=== PATIENT | female | born 1995 | race Caucasian/White ===

== ENCOUNTER 2019-10-02 12:45 | Inpatient (IN) | payer SELFPAY ==
[~2019-10-02] VITALS: Ht 167.6 cm; Wt 70.8 kg
[~2019-10-02 12:45] MED LIST: AMOX1TAB11 PO
[2019-10-02 13:19] LABS: AMNIO PT POSITIVE
[2019-10-02] MEDS ORDERED: IBUPROFEN 400 MG TABLET. PO PRN (13:45)
[2019-10-02] MEDS ORDERED: ONDANSETRON PF 4 MG/2 ML VIAL. IVP PRN ×2 (13:45→17:30)
[2019-10-02] MEDS ORDERED: BUTORPHANOL 2 MG/ML VIAL. IVP PRN (13:45)
[2019-10-02] MEDS ORDERED: 0.9 % SODIUM CHLORIDE 10 ML DISP.SYRIN. IV PRN (13:45)
[2019-10-02] MEDS ORDERED: LIDOCAINE 1% PF 30 ML VIAL. INJ PRN (13:45)
[2019-10-02] MEDS ORDERED: AMPICILLIN SODIUM 2 GM in IV NORMAL SALINE 100ML 100 ML IV ONE (13:45)
[2019-10-02] MEDS ORDERED: MAG HYDROX/ALUMINUM HYD/SIMETH 30 ML ORAL.SUSP PO PRN (13:45)
[2019-10-02] MEDS ORDERED: TERBUTALINE 1 MG/ML VIAL. SQ PRN (13:45)
[2019-10-02] MEDS ORDERED: OXYTOCIN 30 UNIT/500 ML PREMIX 500 ML IV PRN ×2 (13:45)
[2019-10-02] MEDS: IV RINGERS,LACTATED 1000ML 1,000 ML IV SCH ×4 (14:00→22:25)
[2019-10-02 14:03] VITALS: BP 124/60
[2019-10-02 14:04] LABS: BASO # 0.1 x10^3/uL (0.0-0.2); BASO % 1 % (0-3); EOS # 0.1 x10^3/uL (0.0-0.7); EOS % 1 % (0-3); HEMATOCRIT 33.9 % (36.0-47.0); HEMOGLOBIN 11.7 g/dL (12.0-15.5); LYMPH # 2.4 x10^3/uL (1.0-4.8); LYMPH % 24 % (24-48); MEAN CORPUSCULAR HEMOGLOBIN 29 pg (25-35); MEAN CORPUSCULAR HGB CONC 35 g/dL (31-37); MEAN CORPUSCULAR VOLUME 82 fL (79-100); MONO # 0.7 x10^3/uL (0.0-1.1); MONO % 7 % (0-9); NEUT # 6.6 x10^3/uL (1.8-7.7); NEUT % 67 % (31-73); PLATELET COUNT 327 x10^3/uL (140-400); RED BLOOD COUNT 4.12 x10^6/uL (3.50-5.40); RED CELL DISTRIBUTION WIDTH 14.1 % (11.5-14.5); WHITE BLOOD COUNT 9.8 x10^3/uL (4.0-11.0)
--- NOTE | 2019-10-02 14:17 | RAD ---
OB ULTRASOUND, > 14 WEEKS Clinical Indication: No care, ruptured membranes. Comparison: None. Technique: Multiple grayscale images, color Doppler, and M-mode images of the uterus are obtained. Findings: There is a single intrauterine in vertex presentation. The placenta is anterior and fundal in location without evidence of placenta previa. The amount of amniotic fluid appears appropriate. Amniotic fluid index is 9.8 cm. The cervix is not visualized. Biometrical data: BPD = 9.4 cm for 38 weeks 3 days. HC = 33.4 cm for 38 weeks 1 days. AC = 33.1 cm for 37 weeks 0 days. FL = 7.2 cm for 36 weeks 6 days. HC/AC ratio = 1.01. Overall, the estimated sonographic gestational age is 37 weeks and 4 days for an estimated date of delivery of October 19, 2019. The estimated date of delivery provided by the last menstrual period is October 18, 2019. Estimated weight is 3164 +/- 468 grams. The estimated heart rate is 122 beats per minute. A anatomic survey is not possible due to advanced gestational age. IMPRESSION: Single live intrauterine with estimated sonographic gestational age of 37 weeks and 4 days. Electronically signed by: Jose Angel Mccormack MD (10/02/2019 2:14 PM) [id number]
[2019-10-02] MEDS ORDERED: OXYTOCIN 30 UNIT/500 ML PREMIX 500 ML IV ONE (16:30)
[2019-10-02] MEDS ORDERED: IV RINGERS,LACTATED 1000ML 1,000 ML IV SCH (17:26)
[2019-10-02] MEDS ORDERED: IV RINGERS,LACTATED 500ML 500 ML IV PRN (17:30)
[2019-10-02] MEDS ORDERED: ePHEDrine PF IN SALINE 50 MG/10 ML SYRINGE. IV PRN (17:30)
[2019-10-02] MEDS ORDERED: L&D EPIDURAL SYRINGE 50 ML EPID PRN (17:30)
[2019-10-02] MEDS ORDERED: BUPIVACAINE MPF 0.25% 30 ML VIAL. EPID PRN (17:30)
[2019-10-02] MEDS ORDERED: PROCHLORPERAZINE 10 MG/2 ML VIAL. IV PRN (17:30)
[2019-10-02] MEDS ORDERED: diphenhydrAMINE 50 MG/ML VIAL IV PRN ×2 (17:30)
[2019-10-02] MEDS ORDERED: fentaNYL PF VIAL 100 MCG/2 ML VIAL EPID PRN (17:30)
[2019-10-02] MEDS ORDERED: ATROPINE 0.5 MG/5 ML DISP.SYRINGE. IV PRN (17:30)
[2019-10-02] MEDS ORDERED: PHENYLEPHRINE in 0.9% NACL PF 1 MG/10 ML SYRINGE. IV PRN (17:30)
[2019-10-02] MEDS ORDERED: NALOXONE 0.4 MG/ML VIAL. IV PRN (17:30)
[2019-10-02] MEDS ORDERED: ROPIVacaine 0.2% PF 10 ML VIAL. EPID PRN (17:30)
[2019-10-02] MEDS: AMPICILLIN SODIUM 1 GM in IV NORMAL SALINE 50ML 50 ML IV SCH ×2 (18:12→21:15)
[2019-10-02] MEDS: BUTORPHANOL 2 MG/ML VIAL. IVP PRN ×2 (19:06→22:08)
[2019-10-02 21:57] LABS: BILIRUBIN,URINE NEGATIVE (NEG); CLARITY,URINE CLEAR; COLOR,URINE YELLOW; NITRITE,URINE NEGATIVE (NEG); PH,URINE 7.5 (<5.0-8.0); PROTEIN,URINE NEGATIVE (NEG-TRACE); UROBILINOGEN,URINE 0.2 mg/dL (0.2 mg/dL)
[2019-10-02 22:02] LABS: BARBITURATES NEG (NEG); BENZODIAZEPINES NEG (NEG); CANNABINOIDS NEG (NEG); COCAINE NEG (NEG); METHADONE NEG (NEG); OPIATES NEG (NEG); PHENCYCLIDINE NEG (NEG)
[2019-10-02 22:03] LABS: AMPHETAMINE/METHAMPHETAMINE NEG (NEG)
[2019-10-02 22:11] LABS: BACTERIA,URINE FEW /HPF (0-FEW); SQUAMOUS EPITHELIAL CELL,UR FEW /LPF
[2019-10-03] MEDS ORDERED: MMR per PROTOCOL. MC PRN (01:30)
[2019-10-03] MEDS ORDERED: MAGNESIUM HYDROXIDE 2,400 MG/30 ML ORAL.SUSP. PO PRN (01:30)
[2019-10-03] MEDS ORDERED: PHENYLEPH/MINERAL OIL/PETROLAT RECTAL OINTMENT TUBE. RC PRN (01:30)
[2019-10-03] MEDS ORDERED: HYDROCORTISONE 1% TOPICAL OINTMENT 30GM TUBE. TP PRN (01:30)
[2019-10-03] MEDS ORDERED: ACETAMINOPHEN 325 MG TABLET. PO PRN (01:30)
[2019-10-03] MEDS ORDERED: SIMETHICONE 80 MG TAB.CHEW PO PRN (01:30)
[2019-10-03] MEDS ORDERED: diphenhydrAMINE HCL 25 MG CAPSULE PO PRN (01:30)
[2019-10-03] MEDS ORDERED: MAG HYDROX/ALUMINUM HYD/SIMETH 30 ML ORAL.SUSP PO PRN (01:30)
[2019-10-03] MEDS ORDERED: OXYTOCIN 30 UNIT/500 ML PREMIX 500 ML IV PRN (01:30)
[2019-10-03] MEDS ORDERED: oxyCODONE/APAP 5/325 1 TAB TABLET PO PRN (01:30)
[2019-10-03] MEDS ORDERED: TDaP (Adacel) per PROTOCOL. MC PRN (01:30)
[2019-10-03] MEDS ORDERED: 0.9 % SODIUM CHLORIDE 10 ML DISP.SYRIN. IV PRN (01:30)
[2019-10-03] MEDS ORDERED: BENZOCAINE 20% TOPICAL AEROSOL SPRAY 57GM CAN. TP PRN (01:30)
[2019-10-03] MEDS ORDERED: ZOLPIDEM 5 MG TABLET. PO PRN (01:30)
[2019-10-03] MEDS ORDERED: DOCUSATE SODIUM 100 MG CAPSULE. PO PRN (01:30)
--- NOTE | 2019-10-03 01:44 | LDN ---
DATE OF DELIVERY: This patient is a 24-year-old female who is a 1, para 0, 37 weeks' . comes in with a history of having contractions and also ruptured membranes and AmniSure positive and the patient admitted to the hospital. Cervix was dilated to 2 cm. She did have a sonogram and after that IV Pitocin was started. She did have slow progress of labor and got to complete dilatation, had a spontaneous vaginal delivery. A live male was delivered at 1:11 a.m. on 10/03/2019 with the score of 8 and 9 without any problem. Cord was around the neck, which was released at the time of the delivery. Cord was clamped and cut. Cord blood was taken. Placenta removed spontaneous. She did receive Pitocin after delivery of the placenta. She had an episiotomy that was sutured with 2-0 chromic catgut sutures without any problem. Estimated blood loss about 300 mL. Baby is referred to shop and alteration tailor for further care and treatment. Mother tolerated the delivery well. No complications at this time. PAPA MIX MD DR: MARICARMEN/mickey JOB#: [id number] / [id number]
[2019-10-03] MEDS: AMPICILLIN SODIUM 1 GM in IV NORMAL SALINE 50ML 50 ML IV SCH (02:00)
--- NOTE | 2019-10-03 02:30 | HP ---
ADMIT DATE: 10/02/2019 CHIEF COMPLAINT AND HISTORY OF PRESENT ILLNESS: This patient is a 24-year-old white female who is 1, para 0. She is with 37 weeks' admitted to the hospital with a history of having contractions and also spontaneous rupture of membranes. She is a labor and premature labor at this time. OBJECTIVE: VITAL SIGNS: Stable. She did have a sonogram which showed 37 weeks' size uterus, vertex presenting. PELVIC: Showed cervix 2 cm dilated and leaking amniotic fluid, which is clear. ALLERGIES: None known. DIAGNOSES: Primigravida, labor, spontaneous rupture of membranes. PLAN: Admission to the hospital. Vaginal delivery. PAPA MIX MD DR: MARICARMEN/mickey JOB#: [id number] / [id number]
[2019-10-03 04:10] VITALS: BP 102/68
[2019-10-03] MEDS: IV RINGERS,LACTATED 1000ML 1,000 ML IV SCH (04:46)
[2019-10-03] MEDS ORDERED: IBUPROFEN 200 MG TABLET. PO SCH (06:00)
--- NOTE | 2019-10-03 11:11 | PDOC ---
GENERAL General: Patient doing ok. Holding the Baby. Wants to Breast feed the Baby. VITAL SIGNS Vital Signs/I&O: Vital Signs Date Time Temp Pulse Resp B/P (MAP) Pulse Ox O2 Delivery O2 Flow Rate FiO2 10/03/19 04:10 97.5 49 18 102/68 (79) 100 97.5 10/03/19 04:10 Room Air I & O 10/02/19 10/02/19 10/03/19 14:59 22:59 06:59 Intake Total 50 ml 300 ml Balance 50 ml 300 ml ALLERGIES Allergies: Allergies Coded Allergies Type Severity Reaction Last Updated Verified No Known Drug Allergies 04/25/14 No MEDS Medications: Current Medications Medications (Trade) Dose Ordered Sig/Allison Route PRN Reason Start Time Stop Time Status Last Admin Dose Admin Ringer's Solution 1,000 ml @ 125 mls/hr Q8H IV 10/02/19 12:46 10/03/19 04:54 DC 10/02/19 14:00 Ringer's Solution 1,000 ml @ 125 mls/hr Q8H IV 10/02/19 13:35 10/03/19 04:54 DC 10/02/19 22:25 Butorphanol Tartrate (Stadol) 2 mg PRN Q1HR PRN IVP Severe labor pain 10/02/19 13:45 10/02/19 22:08 Lidocaine HCl (Xylocaine 1% Pf 30ml Vial) 30 ml 1X PRN PRN INJ SEE COMMENTS 10/02/19 13:45 10/04/19 13:44 10/03/19 01:38 Ampicillin Sodium 2 gm/Sodium Chloride 100 ml @ 200 mls/hr 1X ONCE IV 10/02/19 13:45 10/02/19 14:14 DC 10/02/19 14:00 Ampicillin Sodium 1 gm/Sodium Chloride 50 ml @ 100 mls/hr Q4H IV 10/02/19 18:00 10/03/19 04:54 DC 10/02/19 21:15 Oxytocin/Sodium Chloride 500 ml @ 0 mls/hr CONT PRN IV SEE I/O RECORD 10/02/19 13:45 10/02/19 18:12 Ibuprofen (Motrin) 800 mg PRN Q6HRS PRN PO INFLAMMATION 10/02/19 13:45 10/03/19 10:03 Docusate Sodium (Colace) 100 mg PRN BID PRN PO CONSTIPATION 10/03/19 01:30 10/03/19 10:03 LAB Lab: Laboratory Tests Test 10/02/19 12:55 10/02/19 13:50 10/02/19 21:15 Amniotic Fluid Swab Test Positive White Blood Count 9.8 x10^3/uL (4.0-11.0) Red Blood Count 4.12 x10^6/uL (3.50-5.40) Hemoglobin 11.7 g/dL (12.0-15.5) L Hematocrit 33.9 % (36.0-47.0) L Mean Corpuscular Volume 82 fL (79-100) Mean Corpuscular Hemoglobin 29 pg (25-35) Mean Corpuscular Hemoglobin Concent 35 g/dL (31-37) Red Cell Distribution Width 14.1 % (11.5-14.5) Platelet Count 327 x10^3/uL (140-400) Neutrophils (%) (Auto) 67 % (31-73) Lymphocytes (%) (Auto) 24 % (24-48) Monocytes (%) (Auto) 7 % (0-9) Eosinophils (%) (Auto) 1 % (0-3) Basophils (%) (Auto) 1 % (0-3) Neutrophils # (Auto) 6.6 x10^3/uL (1.8-7.7) Lymphocytes # (Auto) 2.4 x10^3/uL (1.0-4.8) Monocytes # (Auto) 0.7 x10^3/uL (0.0-1.1) Eosinophils # (Auto) 0.1 x10^3/uL (0.0-0.7) Basophils # (Auto) 0.1 x10^3/uL (0.0-0.2) Treponema pallidum Antibody Nonreactive (Nonreactive) Hepatitis B Surface Antigen Nonreactive (Nonreactive) HIV (1&2) Antibody Screen Pending Urine Collection Type Unknown Urine Color Yellow Urine Clarity Clear Urine pH 7.5 (<5.0-8.0) Urine Specific [place] 1.015 (1.000-1.030) Urine Protein Negative mg/dL (NEG-TRACE) Urine Glucose (UA) Negative mg/dL (NEG) Urine Ketones (Stick) Negative mg/dL (NEG) Urine Blood Moderate (NEG) Urine Nitrite Negative (NEG) Urine Bilirubin Negative (NEG) Urine Urobilinogen Dipstick 0.2 mg/dL (0.2 mg/dL) Urine Leukocyte Esterase Negative (NEG) Urine RBC 11-20 /HPF (0-2) Urine WBC 1-4 /HPF (0-4) Urine Squamous Epithelial Cells Few /LPF Urine Bacteria Few /HPF (0-FEW) Urine Opiates Screen Neg (NEG) Urine Methadone Screen Neg (NEG) Urine Barbiturates Neg (NEG) Urine Phencyclidine Screen Neg (NEG) Urine Amphetamine/Methamphetamine Neg (NEG) Urine Benzodiazepines Screen Neg (NEG) Urine Cocaine Screen Neg (NEG) Urine Cannabinoids Screen Neg (NEG) Urine Ethyl Alcohol Neg (NEG) Laboratory Tests 10/02/19 13:50 ASSESSMENT & PLAN A&P Vital signs stable. Doing ok. Plan dismissal tomorrow. PAPA MIX MD Oct 03, 2019 11:11
[2019-10-03 18:15] VITALS: BP 105/52
[2019-10-03 23:15] VITALS: BP 116/63
--- NOTE | 2019-10-04 04:53 | NUR ---
Living Advisor called L&D and Room 341 had called out and wanted nursery to come get her baby. While walking down the do towards room 341 pt yelling out saying "I didnt do it, I didnt do it" and banging heard. When coming upon the room more banging was heard. When arrived in the room pt smiles and is laying in the bed holding baby and says "Hello". I stated "you wanted to send your baby to the nursery" and she states "No". I politely say "the fiberglass machine operator called and you told them that you wanted nursery to come get your baby". She said "Oh I don't like him going that far from me". I said "well its right down the hallway, its not far at all. I told her that it may be good to do for a while so that she can get some rest", she then agreed, kissed baby and I checked arm bands and then wheeled baby to nursery into the care of Anastacia Sanchez RN.
[2019-10-04 06:22] VITALS: BP 109/55
[2019-10-04] MEDS: FERROUS SULFATE 325 MG TABLET. PO SCH ×2 (08:00→17:00)
--- NOTE | 2019-10-04 11:38 | NUR ---
0800 took pt her breakfast tray and she was sound asleep. called her name x 2 and did not wake up. left the room. returned 099 pt was awake and very pleasant. was not in room did not see interaction with infant.
--- NOTE | 2019-10-04 12:00 | NUR ---
upon scanning in the rhogam pt jumped to the side and decided she did not want shot in the butt. Informed pt again of the value of inj. for further pregnancies. States that will be fine she will take it. upon making move toward pt she refused again. Does not want it.
[2019-10-04 12:30] VITALS: BP 104/66
--- NOTE | 2019-10-04 12:47 | PDOC1 ---
History & Psych Evaluation Date of Admission: Date of Admission DATE: 10/04/19 TIME: 12:46 Source: Source: Caregiver, Chart review, Patient Identification: Identification She is a 24-year-old female S/P . Chief Complaint: Chief Complaint Bizarre behavior, behavioral changes, irritability History of Present Illness: HPI: She is a young female admitted with a spontaneous rupture of membrane. She is S/P first week. She is seen for comprehensive psychiatric evaluation for bizarre behavior and behavioral disturbances. According to the information obtained from nursing staff, she was found yelling and screaming in her room, anxious, and bizarre . She was cursing nursing is staff on the unit. At times irritable and yelling over phone. Reportedly, seeing things in her room those actually were not over there. Upon interview, she appears somewhat guarded and minimizing symptomatology. States, she is doing fine happy with having baby. Father of the baby is not involved in care. Reports that, she had consistent care during with her baby. She denies having auditory or visual hallucinations. She denies behavioral disturbances. However, she reports having anxiety episodes " obviously this is my first baby". States, overall she is doing fine and ready to go home. She appears focused on discharge. She denies depression, suicidal or homicidal thoughts, martin or hypomania, and psychosis. When asked about substance use history, she categorically denied it. When asked about legal issues she again denied. When discussed that, hospital family welfare social work professor found some warrants for arrest and probation history, she initially denied and then said " it could be some traffic tickets". Note: Patient initially called her sister and wanting clinical writer to talk to her. Sister requested to this clinical writer to talk in detail when patient would not be there. Called patient's sister Ms. Miller. She reported that, patient was behaving differently during at times appeared indifferent. Patient has history of substance use, arrested in [facility] and [facility] due to ongoing [facility]. She has felony charges. States, due to patient's poor choices and company, she was not in contact with her for a while. However, when she came across the news of she contacted patient and wanted to help her. Couple of weeks ago patient came to her sister house and then left for a week without knowing her. Sister would not know where patient was during that timeframe. Her sister expressed her concern regarding safety of the patient and her baby. She was willing to take care of patient and her baby upon discharge. Stated that, she brought all the necessary things and car seat for her nephew as patient was not able to afford. She also reported that patient has history of auditory hallucinations and mood instability previously. Fortunately, she was never admitted in psychiatric hospitals. Sister appeared very supportive and open to help with anything. Past Psychiatric History: Patient denies previous psychiatric history, psychiatric hospital admissions, suicidality. Denies previous history of suicidal attempts. According to the information obtained from collateral sources including her sister, she has history of substance use and having auditory hallucinations. Past Medical History: Please see medical chart for details. Family History: Patient denied family history of mental health issues or suicide. According to her sister, biological mother has history of substance use. Family history is also significant for bipolar mood disorder. Likely biological mother has schizoaffective disorder. Social History: Social History: She has completed high school. She has some work history then quit working because of . She was living with her mother. Reportedly, going to live with her sister who is supportive. She initially denied history of legal issues. According to the collateral information obtained she has felony charges and warrants. She was arrested and [facility] and released early because of COVID. Likely she has a court date upcoming. She denied history of tobacco use, alcohol abuse, and illicit substance use. However, collateral information is consistent with substance use history. Current Medications: Current Medications Current Medications Medications (Trade) Dose Ordered Sig/Allison Start Time Stop Time Status Last Admin Dose Admin Acetaminophen (Tylenol) 650 mg PRN Q6HRS PRN 10/03/19 01:30 Al Hydroxide/Mg Hydroxide (Mylanta Plus Xs) 30 ml PRN Q4HRS PRN 10/03/19 01:30 Ampicillin Sodium 1 gm/Sodium Chloride 50 ml @ 100 mls/hr Q4H 10/02/19 18:00 10/03/19 04:54 DC 10/02/19 21:15 100 MLS/HR Ampicillin Sodium 2 gm/Sodium Chloride 100 ml @ 200 mls/hr 1X ONCE 10/02/19 13:45 10/02/19 14:14 DC 10/02/19 14:00 200 MLS/HR Atropine Sulfate (ATROPINE 0.5mg SYRINGE) 0.4 mg PRN Q2MIN PRN 10/02/19 17:30 Benzocaine (Americaine) 1 spray PRN QID PRN 10/03/19 01:30 Bupivacaine HCl (Sensorcaine Mpf 0.25%) 10 ml PRN 1X PRN 10/02/19 17:30 10/03/19 17:29 DC Butorphanol Tartrate (Stadol) 2 mg PRN Q1HR PRN 10/02/19 13:45 10/02/19 22:08 2 MG Diphenhydramine HCl (Benadryl) 25 mg PRN Q6HRS PRN 10/03/19 01:30 Docusate Sodium (Colace) 100 mg PRN BID PRN 10/03/19 01:30 10/03/19 10:03 100 MG Ephedrine Sulfate (ePHEDrine PF IN SALINE SYRINGE) 10 mg PRN Q2MIN PRN 10/02/19 17:30 Fentanyl Citrate 50 ml @ 14 mls/hr CONT PRN 10/02/19 17:30 Fentanyl Citrate (Fentanyl 2ml Vial) 100 mcg PRN 1X PRN 10/02/19 17:30 10/03/19 17:29 DC Ferrous Sulfate (Feosol) 325 mg BIDWMEALS 10/04/19 08:00 Hydrocortisone (Cortaid) 1 diana PRN QID PRN 10/03/19 01:30 Ibuprofen (Motrin) 600 mg Q6HRS 10/03/19 06:00 10/03/19 12:38 DC Info (Do NOT chart on this placeholder) 1 ea 1X PRN PRN 10/03/19 01:30 Lidocaine HCl (Xylocaine 1% Pf 30ml Vial) 30 ml 1X PRN PRN 10/02/19 13:45 10/04/19 13:44 10/03/19 01:38 30 ML Magnesium Hydroxide (Milk Of Magnesia) 2,400 mg PRN DAILY PRN 10/03/19 01:30 Naloxone HCl (Narcan) 0.04 mg PRN Q1MIN PRN 10/02/19 17:30 Ondansetron HCl (Zofran) 4 mg PRN Q6HRS PRN 10/02/19 17:30 Oxycodone/ Acetaminophen (Percocet 5/325) 2 tab PRN Q4HRS PRN 10/03/19 01:30 Oxytocin/Sodium Chloride 500 ml @ 62.5 mls/hr CONT PRN 10/03/19 01:30 10/03/19 09:29 DC Phenyleph/Shark Oil/Min Oil/Petrol (Preparation H) 1 diana PRN QID PRN 10/03/19 01:30 Phenylephrine HCl (PHENYLEPHRINE in 0.9% NACL PF) 0.05 mg PRN Q2MIN PRN 10/02/19 17:30 Prochlorperazine Edisylate (Compazine) 5 mg PRN Q6HRS PRN 10/02/19 17:30 Ringer's Solution 500 ml @ 500 mls/hr 1X PRN PRN 10/02/19 17:30 10/03/19 17:29 DC Ropivacaine (Naropin 0.2%) 20 ml 1X PRN PRN 10/02/19 17:30 10/03/19 17:29 DC Simethicone (Gas-X) 80 mg PRN AFTMEALHC PRN 10/03/19 01:30 Sodium Chloride (Normal Saline Flush) 10 ml QSHIFT PRN 10/03/19 01:30 Terbutaline Sulfate (Brethine) 0.25 mg 1X PRN PRN 10/02/19 13:45 10/03/19 13:44 DC Zolpidem Tartrate (Ambien) 5 mg PRN QHS PRN 10/03/19 01:30 Allergies: Allergies: Coded Allergies: No Known Drug Allergies (Unverified , 04/25/14) Mental Status Examination: Mental Status Examination Young female, appears her stated age, fairly groomed, fairly nourished. Guarded, downplaying Speech is mostly soft, with regular rate and rhythm. At times she got loud. Thought processes concrete. Denies auditory or visual hallucinations. Denies suicidal or homicidal thoughts. Mood is dysphoric. Affect is dysthymic. Insight is limited. Impulse control is limited. Judgment is impaired. Concentration and attention span are fair. ROS: Psychiatric review of system is positive for unspecified psychosis, anxiety, irr itability. Physical Exam: Refer to Physician's note. DRESS FINISHER: No focal deficit MSK: No EPS, TDK, or abnormal involuntary movements Vitals: Vitals Vital Signs Date Time Temp Pulse Resp B/P (MAP) Pulse Ox O2 Delivery O2 Flow Rate FiO2 10/04/19 06:22 97.9 66 14 109/55 (73) 98 Room Air 97.9 Labs: Labs Laboratory Tests Test 10/02/19 12:55 10/02/19 13:50 10/02/19 21:15 10/04/19 06:20 Amniotic Fluid Swab Test Positive White Blood Count 9.8 x10^3/uL (4.0-11.0) Red Blood Count 4.12 x10^6/uL (3.50-5.40) Hemoglobin 11.7 g/dL (12.0-15.5) Hematocrit 33.9 % (36.0-47.0) 30.2 % (36.0-47.0) Mean Corpuscular Volume 82 fL (79-100) Mean Corpuscular Hemoglobin 29 pg (25-35) Mean Corpuscular Hemoglobin Concent 35 g/dL (31-37) Red Cell Distribution Width 14.1 % (11.5-14.5) Platelet Count 327 x10^3/uL (140-400) Neutrophils (%) (Auto) 67 % (31-73) Lymphocytes (%) (Auto) 24 % (24-48) Monocytes (%) (Auto) 7 % (0-9) Eosinophils (%) (Auto) 1 % (0-3) Basophils (%) (Auto) 1 % (0-3) Neutrophils # (Auto) 6.6 x10^3/uL (1.8-7.7) Lymphocytes # (Auto) 2.4 x10^3/uL (1.0-4.8) Monocytes # (Auto) 0.7 x10^3/uL (0.0-1.1) Eosinophils # (Auto) 0.1 x10^3/uL (0.0-0.7) Basophils # (Auto) 0.1 x10^3/uL (0.0-0.2) Treponema pallidum Antibody Nonreactive (Nonreactive) Hepatitis B Surface Antigen Nonreactive (Nonreactive) HIV (1&2) Antibody Screen Nonreactive (Nonreactive) Urine Collection Type Unknown Urine Color Yellow Urine Clarity Clear Urine pH 7.5 (<5.0-8.0) Urine Specific [place] 1.015 (1.000-1.030) Urine Protein Negative mg/dL (NEG-TRACE) Urine Glucose (UA) Negative mg/dL (NEG) Urine Ketones (Stick) Negative mg/dL (NEG) Urine Blood Moderate (NEG) Urine Nitrite Negative (NEG) Urine Bilirubin Negative (NEG) Urine Urobilinogen Dipstick 0.2 mg/dL (0.2 mg/dL) Urine Leukocyte Esterase Negative (NEG) Urine RBC 11-20 /HPF (0-2) Urine WBC 1-4 /HPF (0-4) Urine Squamous Epithelial Cells Few /LPF Urine Bacteria Few /HPF (0-FEW) Urine Opiates Screen Neg (NEG) Urine Methadone Screen Neg (NEG) Urine Barbiturates Neg (NEG) Urine Phencyclidine Screen Neg (NEG) Urine Amphetamine/Methamphetamine Neg (NEG) Urine Benzodiazepines Screen Neg (NEG) Urine Cocaine Screen Neg (NEG) Urine Cannabinoids Screen Neg (NEG) Urine Ethyl Alcohol Neg (NEG) Laboratory Tests Test 10/04/19 06:20 Hematocrit 30.2 % (36.0-47.0) Diagnosis: Diagnosis: 1- other specified psychosis, rule out psychosis. 2- unspecified anxiety disorder. Assessment: She is a young female who is first week , reportedly having bizarre behavior. Apparently upon assessment, she appeared downplaying with her symptoms and minimizing alberts points are in her history. Not sure about her mo tives that could be to get early discharge. She is reluctant for psychological exploration and making contradictory statements and excuses to justify. At times, she got irritable and frustrated when explained regarding assessment. Her sister who appears to be very supportive provided relevant information, also expressed concerns regarding patient and her baby's safety. Recommending at this point to [facility] child protective agency regarding concerns and safe discharge/disposition. She was reluctant to get RhoGam, however, when explained she appears in agreement to take it. Plan: Continue to monitor patient for psychosis, baby's care, and behavioral disturbances. Recommending antipsychotics if required. Recommending to [facility] child protective service. Psychoeducation provided. Supportive psychotherapy provided. For the safety of patient and baby, recommending either constant observation or transfer baby to nursery. Thank you for involving inpatient care. SHANELLE COHEN MD Oct 04, 2019 12:47
--- NOTE | 2019-10-04 12:59 | PDOC ---
GENERAL General: Patient has problems communicating. Questionable Mental Problems. VITAL SIGNS Vital Signs/I&O: Vital Signs Date Time Temp Pulse Resp B/P (MAP) Pulse Ox O2 Delivery O2 Flow Rate FiO2 10/04/19 06:22 97.9 66 14 109/55 (73) 98 Room Air 97.9 I & O 10/03/19 10/03/19 10/04/19 15:00 23:00 07:00 Intake Total 240 ml 300 ml Balance 240 ml 300 ml ALLERGIES Allergies: Allergies Coded Allergies Type Severity Reaction Last Updated Verified No Known Drug Allergies 04/25/14 No LAB Lab: Laboratory Tests Test 10/04/19 06:20 Hematocrit 30.2 % (36.0-47.0) L Laboratory Tests 10/04/19 06:20 ASSESSMENT & PLAN A&P Will get Psychiatric consultation today. Patient will stay as Border Status for now. Will go home tomorrow. PAPA MIX MD Oct 04, 2019 12:59
--- NOTE | 2019-10-04 14:19 | NUR ---
ASKED PT IF SHE WOULD LIKE ME TO CALL SISTER TO EXPLAIN TO HER WHY WAS NOT ABLE TO GO HOME DUE TO GBS POSITIVE. STATES SHE WILL TELL HER.
--- NOTE | 2019-10-04 14:25 | NUR ---
heard pt from desk yelling at sister about calling desk to talk to nurse . Sister called desk and has stated Melba has been dismissed and is sitting outside waiting for her. Told sister that no dismissal has been made at this time.
--- NOTE | 2019-10-04 16:01 | NUR ---
Dr Mae here to see patient
--- NOTE | 2019-10-04 17:46 | NUR ---
patient was given choice of one on one or to send baby to nursery and could go visit at will. Pt refuses to send to nursery wants one on one.
[2019-10-04 18:25] VITALS: BP 117/62
--- NOTE | 2019-10-04 21:00 | NUR ---
Went into room to relieve RN because of a phone call. Pt seemed appropriate then got up and said to me I think hes trying to take a "SHIT", I said maybe he is he seems like he's trying to, I would check him when he's done. She then goes to hold baby and stare off into space and smile and laugh. There was nothing there to look at or laugh at. Pt continuously rubbed baby's head and fixed hat. Mother than firmly rubbed top of baby's head and baby started to fuss a bit. I told the mother that she couldn't rub his head that hard, that by doing that she could hurt her baby. I asked if anyone went over with her his soft spot and what it is and she stated I would never do anything to harm my baby, he sneezed. I told her no I don't think you would but educated her on the soft spot, pt looks all over with no interest in learning. She stated well he has this spot and I like to rub it, I pointed out that was his soft spot and you have to be very gentle with it. Pt then States she wants to be home so she can take care of her baby, "We will be just fine". Pt then gets up and wants to take a walk, pt placed baby in crib instructed her on the importance of keeping him wrapped so he stays warm and showed her, pt to halls to walk. Care taken back over by Yesica JC.
[2019-10-05] VITALS: BP 106/50
[2019-10-05 06:00] VITALS: BP 116/49
[2019-10-05 08:05] VITALS: BP 110/65
--- NOTE | 2019-10-05 08:59 | NUR ---
While patient was bottle feeding baby, he spit up. Patient yelled, "well that's fucking great!" and proceeded to slam crib drawer shut. Encouraged mother to use bulb syringe to get rid of any additional formula remaining in mouth, she states, "no, that's only for boogers." Reinforced bulb syringe use to clear mouth and/or nose. Clean blankets/clothing provided to patient who changed baby's clothes. Robert Mccoy RN
--- NOTE | 2019-10-05 10:31 | NUR ---
SS following up with referral regarding "23 YO with questionable parenting skills. States she has no resources and is not sure where she is going to take baby when she leaves. Has difficulties following directions. No care." SS reviewed chart. Psychiatrist evaluated yesterday and recommended DCF hotline report due to psychosis and anxiety. Mother is self pay. UDS negative per RN. RN made DCF hotline on 10/04/2019, intake# [id number]. Mother gave [place] address at that time. Psychiatrist NOT recommending be discharged with mother. Mother giving [place] address of [address] [place] [id number] this morning. SS contacted PAT team and requested evaluation for additional documentation. SS made new DCF hotline with [place] address. Intake# [id number]. SS received call from [place] DCF worker, Destiny Guevara, , stating that she is staffing with supervisor powdered sugar and stating she cannot visit with mother since she is not licensed in [place]. Destiny notified of [place] address. Destiny reported that she will try to conference with [facility] to see if [place] would take jurisdiction. Destiny reported she would call with more information. Giovani from PAT team evaluating pt. Giovani reported labile mood, characteristics of detachments, elusive/dismissive behaviors, suspected cognitive issues. Mother denying SI and HI. Giovani in agreement with psychiatrist that is not safe to discharge with mother. Nursery requesting police hold until DCF can verify jurisdiction. SS will continue to follow.
[2019-10-05 11:00] VITALS: BP 115/63
--- NOTE | 2019-10-05 11:00 | NUR ---
Patient denies wanting her baby to have circumcision done. "I just want to hurry up and get home." RN remains in room with baby and mother. Mother displays frequent laughing at nothing in particular, focused on getting home soon with baby. Patient called sister, Angela, and states, "you can come and pick me up now," and that the doctors "are not going to get social work involved now." Reinforced to patient that we are still awaiting discharge orders from Dr. Tuttle, as well as manager social. Patient states,"Well then just tell my sister to get ready then!" Insistent that I speak to sister Angela, reinforced that she does not need to come to the hospital yet because we are still waiting for the doctor's arrival. Patient yells, "NO TELL HER TO GET READY!" Sister Angela understanding, calm, cooperative, states she will wait to chicken picker patient and she hears that her sister in the background telling me to tell her to get ready. Robert Mccoy RN
--- NOTE | 2019-10-05 12:22 | NUR ---
SS following up. SS discussed with Giovani, Dr. Tuttle, Dr. Mae, and [facility]. All in agreement that infant needs to be in police protective custody. Mother reporting that that she has warrants as well. As observed, when notified mothers behaviors became erractic and mother began cursing and yelling at staff. Security escorting mother from hospital. Police Protective Custody #[id number] for . Officer Nestor #[id number] and Officer Ismael #[id number]. SS spoke with [place] DCF worker Stacey Otero, , and [place] DCF worker, Destiny Guevara, . DCF continuing to decide which county and state has jurisdiction of infant. They reported that they will update SS as information is received.
--- NOTE | 2019-10-05 12:30 | NUR ---
Robert Mccoy RN entered room with Sanitation Inspector Melba Chacon and Dr. Mae. Updated on DCF and physician evaluation and need for to be placed in police protective custody. Patient states, "Then can't I just sign a paper and give him to my sister?" Mother expresses that if she does that, then she can go home with her baby. Informed that baby will remain in hospital and will be taken care of by the nurses until DCF decides placement. Patient informed of concerns of her ability to take care of baby by Dr. Mae as well as RNs, specific examples provided. Patient repeatedly asked, "but why?" Does not appear to have understanding of concerns being expressed by Dr. Mae retail route supervisor for baby's safety. Mother erratic, cursing, yelling at staff. When asked if she would like assistance with carrying belongings she states to stay away and threatens "I'm going to fuck you up." Mother escorted with belongings by Robert Mccoy RN and security to vehicle, released to care of her sister Angela. [place] band was removed from mother, but she refused to give bracelet to staff. Robert Mccoy RN
--- NOTE | 2019-10-05 13:19 | PDOC ---
F/U PHYSCH PROG NOTE Subjective: Young female seen for follow-up. Progress is reviewed with nursing staff, behavioral health team. DCF from [place] and [place] have been involved. Baby has been placed in place protective custody. Patient continues to be elusive, dismissive and providing contradictory statements. Appears that, cognitively she is having difficulty addressing the situation and severity. At times she is loud, irritable, and screaming. Collateral information that was obtained from social services analyst and patient's sister, she continued to be in denial and minimizing. She was explained in detail regarding baby safety, her own safety, continue to of mental health care, and involvement of DCF. She does not appear to be cognizant and demonstrating impulsivity. However, no risk of suicidal or homicidal intents. She is not in imminent danger to self. Denies auditory or visual hallucinations. Denies overt depression. Objective: Psychiatric review of system is positive for irritability and verbal explosiveness. Negative for suicidal or homicidal thoughts. Negative for auditory or visual hallucinations. Vital Signs: Vital Signs Date Time Temp Pulse Resp B/P (MAP) Pulse Ox O2 Delivery O2 Flow Rate FiO2 10/05/19 11:00 97.8 68 18 115/63 (80) 98 Room Air 97.8 Medications: Current Medications Medications (Trade) Dose Ordered Sig/Allison Start Time Stop Time Status Last Admin Dose Admin Acetaminophen (Tylenol) 650 mg PRN Q6HRS PRN 10/03/19 01:30 Al Hydroxide/Mg Hydroxide (Mylanta Plus Xs) 30 ml PRN Q4HRS PRN 10/03/19 01:30 Ampicillin Sodium 1 gm/Sodium Chloride 50 ml @ 100 mls/hr Q4H 10/02/19 18:00 10/03/19 04:54 DC 10/02/19 21:15 100 MLS/HR Ampicillin Sodium 2 gm/Sodium Chloride 100 ml @ 200 mls/hr 1X ONCE 10/02/19 13:45 10/02/19 14:14 DC 10/02/19 14:00 200 MLS/HR Atropine Sulfate (ATROPINE 0.5mg SYRINGE) 0.4 mg PRN Q2MIN PRN 10/02/19 17:30 Benzocaine (Americaine) 1 spray PRN QID PRN 10/03/19 01:30 Bupivacaine HCl (Sensorcaine Mpf 0.25%) 10 ml PRN 1X PRN 10/02/19 17:30 10/03/19 17:29 DC Butorphanol Tartrate (Stadol) 2 mg PRN Q1HR PRN 10/02/19 13:45 10/02/19 22:08 2 MG Diphenhydramine HCl (Benadryl) 25 mg PRN Q6HRS PRN 10/03/19 01:30 Docusate Sodium (Colace) 100 mg PRN BID PRN 10/03/19 01:30 10/03/19 10:03 100 MG Ephedrine Sulfate (ePHEDrine PF IN SALINE SYRINGE) 10 mg PRN Q2MIN PRN 10/02/19 17:30 Fentanyl Citrate 50 ml @ 14 mls/hr CONT PRN 10/02/19 17:30 Fentanyl Citrate (Fentanyl 2ml Vial) 100 mcg PRN 1X PRN 10/02/19 17:30 10/03/19 17:29 DC Ferrous Sulfate (Feosol) 325 mg BIDWMEALS 10/04/19 08:00 Hydrocortisone (Cortaid) 1 diana PRN QID PRN 10/03/19 01:30 Ibuprofen (Motrin) 600 mg Q6HRS 10/03/19 06:00 10/03/19 12:38 DC Info (Do NOT chart on this placeholder) 1 ea 1X PRN PRN 10/03/19 01:30 Lidocaine HCl (Xylocaine 1% Pf 30ml Vial) 30 ml 1X PRN PRN 10/02/19 13:45 10/04/19 13:44 DC 10/03/19 01:38 30 ML Magnesium Hydroxide (Milk Of Magnesia) 2,400 mg PRN DAILY PRN 10/03/19 01:30 Naloxone HCl (Narcan) 0.04 mg PRN Q1MIN PRN 10/02/19 17:30 Ondansetron HCl (Zofran) 4 mg PRN Q6HRS PRN 10/02/19 17:30 Oxycodone/ Acetaminophen (Percocet 5/325) 2 tab PRN Q4HRS PRN 10/03/19 01:30 Oxytocin/Sodium Chloride 500 ml @ 62.5 mls/hr CONT PRN 10/03/19 01:30 10/03/19 09:29 DC Phenyleph/Shark Oil/Min Oil/Petrol (Preparation H) 1 diana PRN QID PRN 10/03/19 01:30 Phenylephrine HCl (PHENYLEPHRINE in 0.9% NACL PF) 0.05 mg PRN Q2MIN PRN 10/02/19 17:30 Prochlorperazine Edisylate (Compazine) 5 mg PRN Q6HRS PRN 10/02/19 17:30 Ringer's Solution 500 ml @ 500 mls/hr 1X PRN PRN 10/02/19 17:30 10/03/19 17:29 DC Ropivacaine (Naropin 0.2%) 20 ml 1X PRN PRN 10/02/19 17:30 10/03/19 17:29 DC Simethicone (Gas-X) 80 mg PRN AFTMEALHC PRN 10/03/19 01:30 Sodium Chloride (Normal Saline Flush) 10 ml QSHIFT PRN 10/03/19 01:30 Terbutaline Sulfate (Brethine) 0.25 mg 1X PRN PRN 10/02/19 13:45 10/03/19 13:44 DC Zolpidem Tartrate (Ambien) 5 mg PRN QHS PRN 10/03/19 01:30 Physical Exam: Mental Status Exam: Young female appears her stated age, fairly groomed, fairly nourished. Irritable and dismissive. Speech is labile at times loud and screaming. Thought processes concrete. Denies auditory or visual hallucinations. Denies suicidal or homicidal thoughts. Mood is dysphoric. Affect is labile. Insight is limited. Impulse control is fair. Judgment is fair. Physical Exam: Refer to Physician's note. STRUCTURAL ENGINEERING TECHNICIAN: No focal deficit MSK: No EPS, TDK, or abnormal involuntary movements Diagnosis: 1- other specified psychosis, rule out psychosis. 2- unspecified anxiety disorder. Assessment: She is a young female who is first week , reportedly having bizarre behavior. Apparently upon assessment, she appeared downplaying with her symptoms and minimizing alberts points are in her history. She continues to make excuses and contradictory statements when information reviewed with her, appears dismissive. Plan: Recommending strongly for outpatient follow-up care. Psychoeducation provided. Supportive psychotherapy provided. Thank you for involving inpatient care. SHANELLE COHEN MD Oct 05, 2019 13:19
== END 2019-10-05 12:30 | disposition home or self-care (01) | DRG 807 ==
LOC: 3 SO LND 12:45 → OBSVTOIN 13:30 → 3 NORTH 10-03 03:49
PROVIDERS: ADMIT Obstetrics & Gynecology; ATTEND Obstetrics & Gynecology
PROC: 10E0XZZ Delivery of Products of Conception, External Approach (ICD-10-PCS; principal; 2019-10-03)
PROC: 0W8NXZZ Division of Female Perineum, External Approach (ICD-10-PCS; 2019-10-03)
PROC: 3E0234Z Introduction of Serum, Toxoid and Vaccine into Muscle, Percutaneous Approach (ICD-10-PCS; 2019-10-04)
DX: O69.81X0 Labor and delivery complicated by cord around neck, without compression, not applicable or unspecified (principal); Z37.0 Single live birth; O99.344 Other mental disorders complicating childbirth; Z3A.37 37 weeks gestation of pregnancy; F41.9 Anxiety disorder, unspecified; O26.893 Other specified pregnancy related conditions, third trimester; Z67.21 Type B blood, Rh negative; O42.92 Full-term premature rupture of membranes, unspecified as to length of time between rupture and onset of labor
CPT/HCPCS: 36415; 76805; 80307; 81001; 84112; 85014; 85025; 85461; 86592; 86703; 86762; 86850; 86900; 86901; 87340; 99285; G0379; J0290; J0595; J2590; J2791; J3490; J7120; G0378